=== PATIENT | female | born 1955 | race African-American/Black ===

== ENCOUNTER → 2017-02-20 | Outpatient (CLI) | payer OTHER ==
[2015-06-28 13:20] VITALS: BP 144/78
[~2017-02-20] MED LIST: ACET-704 PO; ACET-804 PO; AMIT10TA PO; ATOR10TA60 PO; CYCL10TA2 PO; CYCL5TAB PO; DOCU-109 PO; HYDR-2679 PO; HYDR-2758 PO; LOSA50TA6 PO; NAPR500T3 PO; [UNRECOGNIZED DRUG - CODE] PO
--- NOTE | 2017-02-22 12:08 | RAD ---
DATE: 02/20/2017 EXAM: DIGITAL SCREEN BILAT W/CAD HISTORY: Routine screening COMPARISON: 02/15/2016 This study was interpreted with the benefit of Computerized Aided Detection (CAD). FINDINGS: Breast Density: HETERO The breast parenchyma Is heterogenously dense, which could reduce sensitivity of mammography. Breast parenchyma level C. There are no dominant suspicious masses, suspicious microcalcifications or evidence of architectural distortion. Benign-appearing calcifications identified in the bilateral breasts. IMPRESSION: Benign BI-RADS CATEGORY: 2 BENIGN FINDING RECOMMENDED FOLLOW-UP: 12M 12 MONTH FOLLOW-UP PQRS compliance statement: Patient information was entered into a reminder system with a target due date 02/20/2018 for the next mammogram. Mammography is a sensitive method for finding small breast cancers, but it does not detect them all and is not a substitute for careful clinical examination. A negative mammogram does not negate a clinically suspicious finding and should not result in delay in biopsying a clinically suspicious abnormality. "Our facility is accredited by the [employer] Mammography [employer]."
== END | disposition home or self-care (01) ==
LOC: MAMMO 08:58
PROVIDERS: ATTEND Family Medicine
DX: Z12.31 Encounter for screening mammogram for malignant neoplasm of breast (principal)
CPT/HCPCS: G0202; 77067

== ENCOUNTER → 2017-12-30 | Outpatient (CLI) | payer OTHER | END | disposition home or self-care (01) | LOC: MRI 09:15 | DX: M47.22 Other spondylosis with radiculopathy, cervical region (principal); M48.02 Spinal stenosis, cervical region; I10 Essential (primary) hypertension; E78.00 Pure hypercholesterolemia, unspecified | CPT/HCPCS: 72141 ==

== ENCOUNTER → 2018-02-26 | Outpatient (CLI) | payer OTHER | END | disposition home or self-care (01) | LOC: MAMMO 08:08 | DX: Z12.31 Encounter for screening mammogram for malignant neoplasm of breast (principal) | CPT/HCPCS: 77063; 77067 ==

== ENCOUNTER 2018-11-27 13:02 | Emergency (ER) | payer OTHER ==
[~2018-11-27] VITALS: Ht 162.6 cm; Wt 98.4 kg
[~2018-11-27 13:02] MED LIST changes: -HYDR-2758 PO; +HYDR-2761 PO; +LOSA-73 PO; -LOSA50TA6 PO; +NAPR-514 PO; -NAPR500T3 PO
[2018-11-27 13:12] VITALS: BP 155/74
--- NOTE | 2018-11-27 13:34 | PHYS DOC ---
Past Medical History Past Medical History: High Cholesterol, Hypertension, Other Additional Past Medical Histor: sciatic nerve pain, bulging lumbar discs, urinary incontinence Past Surgical History: Hysterectomy, Other Additional Past Surgical Histo: left ear surgery, uterine lift, back surgery Alcohol Use: Occasionally Drug Use: None Adult General Chief Complaint Chief Complaint: KNEE INJURY HPI HPI 62 yo F with l knee pain x 6 months. neg US 1 month ago. pain is sharp nonradiating. Pt is able to ambulate but l knee hurts with ambulation. ROS neg for numbness tingling, fevers or rash. All other review of systems is negative unless otherwise noted in history of present illness. ED course. 62 yo F with L knee pain x6 months exam shows pain at the hamstring insertion. stable knee joint on exam. nl ant and pos drawer test. nl lachmans and mcmurrays test. nvi distally with 2 sec caprefill. xrays neg. The patient was then discharged home in stable condition to follow up with their primary care physician over the next 1-2 days. They were to return if their symptoms worsened or if they were concerned for any reason. They were also instructed to return to the emergency department if they were unable to get the recommended and appropriate follow-up. [id number] discharge instructions and return precautions were given. Patient's questions were answered to their satisfaction. Patient is comfortable with plan. Review of Systems Review of Systems SEE ABOVE. Allergies Allergies Allergies Coded Allergies Type Severity Reaction Last Updated Verified sulfamethoxazole Adverse Reaction Intermediate Unknown 06/28/15 Yes trimethoprim Adverse Reaction Intermediate Unknown 06/28/15 Yes Physical Exam Physical Exam SEE ABOVE Constitutional: Well developed, well nourished, no acute distress, non-toxic appearance. HENT: Normocephalic, atraumatic, bilateral external ears normal, oropharynx moist, no oral exudates, nose normal. [] Eyes: PERRLA, EOMI, conjunctiva normal, no discharge. Neck: Normal range of motion, no tenderness, supple, no stridor. Cardiovascular:Heart rate regular rhythm, no murmur [] Lungs & Thorax: Bilateral breath sounds clear to auscultation Abdomen: Bowel sounds normal, soft, no tenderness, no masses, no pulsatile masses. [] Skin: Warm, dry, no erythema, no rash. Back: No tenderness, no CVA tenderness. [] Extremities: knee exam above Neurologic: Alert and oriented X 3, normal motor function, normal sensory function, no focal deficits noted. [] Psychologic: Affect normal, judgement normal, mood normal. Current Patient Data Vital Signs Vital Signs Date Time Temp Pulse Resp B/P (MAP) Pulse Ox O2 Delivery O2 Flow Rate FiO2 11/27/18 13:12 98.6 80 18 155/74 (101) 98 Room Air 98.6 EKG EKG [] Radiology/Procedures Radiology/Procedures [] Course & Med Decision Making Course & Med Decision Making Pertinent Labs and Imaging studies reviewed. (See chart for details) [] Dragon Disclaimer Dragon Disclaimer This electronic medical record was generated, in whole or in part, using a voice recognition dictation system. Departure Departure Impression: Primary Impression: Left knee pain Disposition: HOME, SELF-CARE Condition: STABLE Referrals: NON,STAFF (PCP) Patient Instructions: Knee Pain, [id number] Additional Instructions: Thank you for allowing us to participate in your care today. Return to the emergency department you have any new or worsening symptoms, or if you are concerned for any reason. Return to emergency department if you have any new or concerning symptoms including but not limited to fever, chills, nausea, vomiting, intractable pain, any new rashes, chest pain, shortness of air , uncontrolled bleeding, difficulty breathing, and/or vision loss. Follow up with your primary care physician within 1-2 days. Call your Primary Doctor tomorrow and inform them of your visit today. If you do not have a primary care provider we are happy to provide you with a list of our primary care providers contact information. This condition should be evaluated by your primary care physician and any recommended consulting services for continued management within 2 days after discharge. If at any time, you are having difficulty getting into your primary care doctor or a specialist, return to the emergency department. ABDIFATAH ABAD MD Nov 27, 2018 13:34
--- NOTE | 2018-11-27 14:11 | RAD ---
Examination: KNEE LEFT 3V History: PT STATES HAS CATCH IN KNEE, DENIES ANY SPECIFIC INJURY,STATES YESTERDAY MOVED LEG AND CATCH HURT WORSE, UNABLE TO BEAR WEIGHT NOW. Comparison/Correlation: None Findings: Total 3 images of the left knee were obtained. Joint spaces are normal. Small knee joint effusion is present. Spurring about the knee is present. No fracture or bony destruction. Impression: Joint effusion. No acute process. Electronically signed by: Francois Hernandez MD (11/27/2018 2:07 PM) [facility]
== END 2018-11-27 14:45 | disposition home or self-care (01) ==
LOC: ER 13:02
DX: M25.562 Pain in left knee (principal); I10 Essential (primary) hypertension; E78.00 Pure hypercholesterolemia, unspecified; Z88.1 Allergy status to other antibiotic agents; Z88.2 Allergy status to sulfonamides
CPT/HCPCS: 73562; 99283

== ENCOUNTER → 2019-04-01 | Outpatient (CLI) | payer OTHER ==
--- NOTE | 2019-04-04 09:48 | RAD ---
DATE: April 01, 2019 EXAM: DIGITAL SCREEN BILAT W/CAD HISTORY: Screening study. COMPARISON: 2015 and 2017 This study was interpreted with the benefit of Computerized Aided Detection (CAD). FINDINGS: Breast Density: HETERO The breast parenchyma is heterogenously dense, which could reduce sensitivity of mammography. Breast parenchyma level C.. There are no dominant suspicious masses, suspicious microcalcifications or evidence of architectural distortion. IMPRESSION: No mammographic indicators for malignancy. BI-RADS CATEGORY: 1 NEGATIVE RECOMMENDED FOLLOW-UP: 12M 12 MONTH FOLLOW-UP PQRS compliance statement: Patient information was entered into a reminder system with a target due date April 02, 2020 for the next mammogram. Mammography is a sensitive method for finding small breast cancers, but it does not detect them all and is not a substitute for careful clinical examination. A negative mammogram does not negate a clinically suspicious finding and should not result in delay in biopsying a clinically suspicious abnormality. "Our facility is accredited by the [employer] Mammography [employer]." The patient's breast density may affect the ability of mammography to detect breast cancer. There are 4 categories of breast density, A, B, C and D. Breast density A means that most of the breast tissue is replaced with adipose tissue and therefore is not dense. Breast density B means that the breast tissue is mildly dense and scattered. Breast density C means that the breast tissue is heterogeneously dense. Breast density D means that the breast tissue is very dense. Breast densities especially C and D may decrease the sensitivity of mammography to detect breast cancer. Therefore, the patient may benefit from 3-D breast mammography (3D breast tomography) as a part of their screening mammogram. Insurance may or may not pay for this additional imaging. The patient's breast density based on today's mammogram is category C.
== END | disposition home or self-care (01) ==
LOC: MAMMO 09:09
PROVIDERS: ATTEND Family Medicine
DX: Z12.31 Encounter for screening mammogram for malignant neoplasm of breast (principal)
CPT/HCPCS: 77067

== ENCOUNTER → 2020-05-11 | Outpatient (CLI) | payer OTHER ==
--- NOTE | 2020-05-14 12:06 | RAD ---
DATE: 05/11/2020 9:06 AM EXAM: DIGITAL SCREEN BILAT W/CAD HISTORY: Screening COMPARISON: 02/20/2017, 02/26/2018 and 04/01/2019 Bilateral full field craniocaudal and mediolateral oblique images were obtained using digital technique. This study was interpreted with the benefit of Computerized Aided Detection (CAD). FINDINGS: Breast Density: HETERO The breast parenchyma Is heterogeneously dense, which could reduce sensitivity of mammography. Breast parenchyma level C No suspicious masses, microcalcifications or architectural distortion is present to suggest malignancy in either breast. The visualized axillae are unremarkable. IMPRESSION: No mammographic evidence of malignancy. BI-RADS CATEGORY: 1 NEGATIVE RECOMMENDED FOLLOW-UP: 12M 12 MONTH FOLLOW-UP Annual screening mammography is recommended, unless clinically indicated sooner based on symptoms or change in physical exam. PQRS compliance statement: Patient information was entered into a reminder system with a target due date for the next mammogram. Mammography is a sensitive method for finding small breast cancers, but it does not detect them all and is not a substitute for careful clinical examination. A negative mammogram does not negate a clinically suspicious finding and should not result in delay in biopsying a clinically suspicious abnormality. "Our facility is accredited by the [employer] Mammography [employer]."
== END | disposition home or self-care (01) ==
LOC: MAMMO 09:02
PROVIDERS: ATTEND Family Medicine
DX: Z12.31 Encounter for screening mammogram for malignant neoplasm of breast (principal)
CPT/HCPCS: 77067

== ENCOUNTER → 2021-05-31 | Outpatient (CLI) | payer OTHER ==
--- NOTE | 2021-06-05 14:36 | RAD ---
DATE: 05/31/2021 EXAM: MAMMO ANI SCREENING BILATERAL HISTORY: Screening COMPARISON: Multiple prior exams and dating back to 02/15/2016 This study was interpreted with the benefit of Computerized Aided Detection (CAD). Breast Density: SCATTERED The breast parenchyma shows scattered fibroglandular densities. Breast parenchyma level B. FINDINGS: There is a 1 cm ovoid circumscribed mass in the retroareolar left breast, 2 cm posterior to the nipple. No other mass, calcifications, or architectural distortion. IMPRESSION: 1 cm circumscribed mass in the retroareolar left breast. Recommend ultrasound further evaluate. BI-RADS CATEGORY: 0 INCOMPLETE: NEEDS ADDITIONAL IMAGING EVALUATION AND/OR PRIOR MAMMOGRAMS FOR COMPARISON. RECOMMENDED FOLLOW-UP: ADD ADDITIONAL IMAGING PQRS compliance statement: Patient information was entered into a reminder system with a target due date for the next mammogram. Mammography is a sensitive method for finding small breast cancers, but it does not detect them all and is not a substitute for careful clinical examination. A negative mammogram does not negate a clinically suspicious finding and should not result in delay in biopsying a clinically suspicious abnormality. "Our facility is accredited by the [employer] Mammography Program."
== END ==
LOC: MAMMO 08:09
PROVIDERS: ATTEND Family Medicine
DX: Z12.31 Encounter for screening mammogram for malignant neoplasm of breast (principal); N63.20 Unspecified lump in the left breast, unspecified quadrant
CPT/HCPCS: 77063; 77067

== ENCOUNTER → 2021-06-10 | Outpatient (CLI) | payer OTHER ==
--- NOTE | 2021-06-10 10:49 | RAD ---
EXAM: Left breast sonogram. HISTORY: 65-year-old female presents for evaluation of nodularity within the left breast demonstrated on a mammogram performed 05/31/2021. TECHNIQUE: Sonographic imaging of the left breast targeted to the site of mammographic nodularity was performed. COMPARISON: 05/31/2021, 05/11/2020, 04/01/2019, 02/26/2018. FINDINGS: There are ectatic ducts within the retroareolar aspect of the left breast and focally dilat ed ducts at the 4:00 position 2 cm from the nipple. This likely accounts for the mammographic nodular ity of concern. This is mammographically stable compared to exam performed 02/26/2018, also favoring b enignity. No suspicious sonographic correlate is seen. IMPRESSION: 1. Ectatic ducts within the retroareolar aspect of the left breast and focally dilated ducts at the 4 :00 position 2 cm from the nipple, the latter of which likely accounts for mammographic nodularity of concern. There is no suspicious sonographic finding. The mammographic findings are respectively stab le compared to exam performed 02/26/2018. This favors benignity. 2. BI-RADS Category 2: Benign finding(s). Annual mammography is recommended. Electronically signed by: Angy Tiwari MD (06/10/2021 10:46 AM) [id number]
== END ==
LOC: US 10:32
PROVIDERS: ATTEND Family Medicine
DX: R92.8 Other abnormal and inconclusive findings on diagnostic imaging of breast (principal)
CPT/HCPCS: 76641

== ENCOUNTER → 2021-06-17 | Outpatient (CLI) | payer OTHER ==
[~2021-06-17] MED LIST changes: +IOHEXOL 240 MG/ML 50ML VIAL. PO ONE; +IOHEXOL 300 MG/ML 100ML VIAL. IV ONE
--- NOTE | 2021-06-17 11:49 | KCIC ---
EXAM: CT Abdomen and Pelvis with IV contrast CLINICAL HISTORY: Reason: LOWER ABDOMINAL PAIN, RECTAL BLEEDING. LLQ pain 1 month, hx. colon polyps. COMPARISON: none TECHNIQUE: Helical CT of the abdomen and pelvis was performed following the administration of intrave nous contrast. Axial, coronal and sagittal reformatted images were generated. PQRS compliance statement - One or more of the following individualized dose reduction techniques wer e utilized for this study: 1. Automated exposure control 2. Adjustment of the mA and/or kV according to patient size 3. Use of iterative reconstruction technique FINDINGS: Lower Chest: Lung bases are clear. Abdomen and Pelvis: Hepatic hypoattenuation, fatty liver. No definite liver lesion. High density material within the gall bladder likely sludge. No biliary ductal dilatation. Pancreas and spleen are unremarkable. Adrenal gl ands are normal in appearance. Symmetric nephrograms. No focal renal lesion. No hydronephrosis. No hy droureter. Bladder is mildly low. Appendix is normal. Moderate colonic stool content is seen. No small or large bowel dilatation. Colon ic diverticulosis without CT evidence for acute diverticulitis. No free or loculated abdominal or pel abigail collection. No pneumoperitoneum. No abdominal or pelvic lymphadenopathy. Bones: Symphysis pubis degenerative changes are seen. Degenerative changes of the spine. No aggressive osseo us lesion. Degenerative changes at L5-S1. IMPRESSION: 1. Hepatic hypoattenuation, fatty liver. 2. Colonic diverticula are seen without CT evidence for acute diverticulitis. 3. Bladder is somewhat caudal than expected, possibly from partial prolapse or pelvic floor laxity. Electronically signed by: Josué Siu MD (06/17/2021 11:47 AM) [id number]
== END ==
LOC: KCIC CT 09:59
PROVIDERS: ATTEND Family Medicine
DX: K57.30 Diverticulosis of large intestine without perforation or abscess without bleeding (principal); K76.0 Fatty (change of) liver, not elsewhere classified; K62.5 Hemorrhage of anus and rectum; M47.817 Spondylosis without myelopathy or radiculopathy, lumbosacral region
CPT/HCPCS: 74177; Q9966; Q9967